=== PATIENT | female | born 1990 | race Caucasian/White ===

== ENCOUNTER 2019-05-17 00:02 | Emergency (ER) | payer BC ==
[2019-05-17] MEDS ORDERED: NA CHLORIDE 0.9% 1,000 ML ONE (00:49)
[2019-05-17] MEDS ORDERED: MORPHINE 4 MG/ML SYR ONE (00:50)
[2019-05-17] MEDS ORDERED: ONDANSETRON 4 MG/2 ML VIAL ONE (00:50)
[2019-05-17 01:01] LABS: Absolute Lymphocytes (CBC) 3.8 K/uL (0.7-4.9); Basophils % 0.7 % (0-1.3); Hematocrit 36.4 % (36.0-45.0); Lymphocytes % 36.2 % (15.3-44.8); MPV 7.9 fL (7.6-11.3); Monocytes % 6.6 % (3.3-12.3); RBC Red Blood Cell Count 4.62 M/uL (3.86-4.86)
[2019-05-17 01:17] LABS: ALT/SGPT 15 U/L (12-78); AST/SGOT 11 U/L (15-37); Albumin 3.6 g/dL (3.4-5.0); Alkaline Phosphatase 88 U/L (45-117); BUN Blood Urea Nitrogen 6 mg/dL (7-18); Bicarbonate 30 mmol/L (21-32); Bilirubin Direct < 0.1 mg/dL (0-0.2); Bilirubin Total 0.2 mg/dL (0.2-1.0); Glucose Level 102 mg/dL (74-106); Lipase 119 U/L (73-393); Protein, Total 8.5 g/dL (6.4-8.2); Sodium Level 141 mmol/L (136-145)
[2019-05-17 01:18] LABS: Urine Specific Gravity 1.025 (1.005-1.030)
[2019-05-17 01:19] LABS: Urine Blood 1+ (NEG); Urine Glucose NEGATIVE (NEG); Urine Protein 1+ (NEG); Urine Specific Gravity 1.025 (1.005-1.030)
[2019-05-17 01:33] LABS: Urine Bacteria 20-50 /HPF (<20); Urine Culture Reflex Order REFLEXED; Urine RBC <5 /HPF (NONE SEEN)
--- NOTE | 2019-05-17 02:56 | ER ---
Nurse's Notes [facility] Name: Cheryl Rose Age: 29 yrs Sex: Female : 1990 Arrival Date: 05/17/2019 Time: 00:03 Bed 5 Private MD: Diagnosis: Cholelithiasis;Urinary tract infection, site not specified Presentation: 05/17 00:12 Presenting complaint: Patient states: Pt reports she woke up this AM with low back ea pain, reports she took Ibuprofen and it helped, pt reports the pain came back this evening and has not been able to sleep. Reports pain is in lower back radiates to mid back and wraps around right side. Transition of care: patient was not received from another setting of care. Onset of symptoms was May 17, 2019. Risk Assessment: Do you want to hurt yourself or someone else? Patient reports no desire to harm self or others. Initial Sepsis Screen: Does the patient meet any 2 criteria? No. Patient's initial sepsis screen is negative. Does the patient have a suspected source of infection? No. Patient's initial sepsis screen is negative. Care prior to arrival: Medication(s) given: Motrin. 00:12 Method Of Arrival: Ambulatory ea 00:12 Acuity: CATRACHITA 3 ea Triage Assessment: 00:19 General: Appears uncomfortable, Behavior is calm, cooperative, appropriate for age. ea Pain: Complains of pain in low back area and left low back Pain radiates to mid back area. Neuro: Level of Consciousness is awake, alert, obeys commands, Oriented to person, place, time, situation. Cardiovascular: Patient's skin is warm and dry. Respiratory: Airway is patent Respiratory effort is even, unlabored, Respiratory pattern is regular, symmetrical. Derm: Skin is pink, warm \\T\\ dry. Musculoskeletal: Circulation, motion, and sensation intact. 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 - Social history:: Smoking status: Patient/guardian denies using tobacco. - Ebola Screening: : No symptoms or risks identified at this time. Screenin:17 Abuse screen: Denies threats or abuse. Nutritional screening: No deficits noted. ea Tuberculosis screening: No symptoms or risk factors identified. Fall Risk None identified. Assessment: 00:20 General: Appears uncomfortable, Behavior is calm, cooperative, appropriate for age. tl2 Pain: Complains of pain in left low back and low back area Pain radiates to right lower quadrant Pain currently is 10 out of 10 on a pain scale. Neuro: Level of Consciousness is awake, alert, obeys commands, Oriented to person, place, time, situation. Cardiovascular: Denies chest pain. Respiratory: Airway is patent Respiratory effort is even, unlabored, Respiratory pattern is regular, symmetrical. GI: Reports nausea, vomiting. : No signs and/or symptoms were reported regarding the genitourinary system. Derm: Skin is pink, warm \\T\\ dry. 03:16 Reassessment: Patient and/or family updated on plan of care and expected duration. Pain ea level reassessed. Patient is alert, oriented x 3, equal unlabored respirations, skin warm/dry/pink. Discharge instruction given to patient. verbalized the understanding of instruction. Pt left ED ambulatory, pt tolerating well. Patient denies pain at this time. Patient states feeling better. Patient states symptoms have improved. Vital Signs: 00:17 BP 141 / 109; Pulse 80; Resp 18; Temp 97.4; Pulse Ox 97% ; Weight 104.33 kg; Height 5 ea ft. 4 in. (162.56 cm); Pain 10/10; 01:06 BP 118 / 81; Pulse 77; Resp 18; Pulse Ox 95% on R/A; Pain 6/10; tl2 02:10 BP 92 / 64; Pulse 74; Resp 18; Pulse Ox 96% on R/A; tl2 02:51 BP 105 / 69; Pulse 65; Resp 18; Pulse Ox 95% on R/A; tl2 03:00 BP 101 / 64; Pulse 70; Resp 18; Temp 97.6; Pulse Ox 98% ; Pain 0/10; ea 00:17 Body Mass Index 39.48 (104.33 kg, 162.56 cm) ea ED Course: 00:03 Patient arrived in ED. ds1 00:07 Flako Owen NP is PHCP. pm1 00:07 Truong Darling MD is Attending Physician. pm1 00:17 Triage completed. ea 00:17 Arm band placed on right wrist. Patient placed in an exam room, on a stretcher, on ea pulse oximetry. 00:18 Patient has correct armband on for positive identification. Bed in low position. Call ea light in reach. Side rails up X2. 00:23 Michelle Kelley RN is Primary Nurse. tl2 00:30 Inserted saline lock: 22 gauge in left antecubital area, using aseptic technique. Blood tl2 collected. 01:48 CT Stone Protocol In Process Unspecified. EDMS 03:17 No provider procedures requiring assistance completed. IV discontinued, intact, ea bleeding controlled, No redness/swelling at site. Pressure dressing applied. Administered Medications: 00:46 Drug: Zofran 4 mg Route: IVP; Site: left antecubital; tl2 01:00 Follow up: Response: No adverse reaction; Nausea is decreased ea 00:46 Drug: morphine 4 mg Route: IVP; Site: left antecubital; tl2 01:00 Follow up: Response: No adverse reaction; Pain is decreased ea 00:46 Drug: NS 0.9% 1000 ml Route: IV; Rate: 1000 ml; Site: left antecubital; tl2 03:19 Follow up: Response: No adverse reaction; IV Status: Completed infusion; IV Intake: ea 1000ml 02:56 CANCELLED (allergy): Rocephin 1 grams IV at calculated rate once; Given slow IV push tl2 per pharmacy instructions Intake: 03:19 IV: 1000ml; Total: 1000ml. ea Outcome: 02:55 Discharge ordered by . pm1 03:17 Discharged to home ambulatory. ea 03:17 Condition: improved 03:17 Discharge instructions given to patient, Instructed on discharge instructions, follow up and referral plans. medication usage, Demonstrated understanding of instructions, follow-up care, medications, Prescriptions given X 1. 03:18 Patient left the ED. ea Signatures: Dispatcher [employer] [facility] Natalie Bae ds1 Flako Owen, ROMMEL TANK PUMPER PANELBOARD pm1 Michelle Kelley RN RN tl2 Denita Sifuentes RN RN ea Corrections: (The following items were deleted from the chart) 01:12 01:06 Pulse 77bpm; Resp 18bpm; Pulse Ox 95% RA; Pain 6/10; tl2 tl2 02:57 00:18 Allergies: No Known Allergies; ea tl2
--- NOTE | 2019-05-17 02:56 | EDPHYS ---
Physician Documentation [facility] Name: Cheryl Rose Age: 29 yrs Sex: Female : 1990 Arrival Date: 05/17/2019 Time: 00:03 Bed 5 Private MD: ED Physician Truong Darling HPI: 05/17 01:20 This 29 yrs old Female presents to ER via Ambulatory with complaints of Back pm1 Pain. 01:22 The patient complains of pain in the right mid back. Onset: The symptoms/episode pm1 began/occurred Yesterday AM. Modifying factors: The symptoms are alleviated by nothing. the symptoms are aggravated by nothing. Associated signs and symptoms: Pertinent positives: nausea, Pertinent negatives: dysuria, fever, hematuria, vomiting. Severity of pain: in the emergency department the pain is actually worse. The patient has not experienced similar symptoms in the past. The patient has not recently seen a physician. 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 - Social history:: Smoking status: Patient/guardian denies using tobacco. - Ebola Screening: : No symptoms or risks identified at this time. ROS: 01:22 Constitutional: Negative for fever, chills, and weight loss, Eyes: Negative for injury, pm1 pain, redness, and discharge, ENT: Negative for injury, pain, and discharge, Neck: Negative for injury, pain, and swelling, Cardiovascular: Negative for chest pain, palpitations, and edema, Respiratory: Negative for shortness of breath, cough, wheezing, and pleuritic chest pain, Abdomen/GI: Negative for abdominal pain, nausea, vomiting, diarrhea, and constipation. 01:22 : Negative for injury, bleeding, discharge, and swelling, MS/Extremity: Negative for injury and deformity, Skin: Negative for injury, rash, and discoloration, Neuro: Negative for headache, weakness, numbness, tingling, and seizure. 01:22 Back: Positive for flank pain, on the right, Negative for injury or acute deformity. Exam: 01:22 Constitutional: This is a well developed, well nourished patient who is awake, alert, pm1 and in no acute distress. Head/Face: Normocephalic, atraumatic. Eyes: Pupils equal round and reactive to light, extra-ocular motions intact. Lids and lashes normal. Conjunctiva and sclera are non-icteric and not injected. Cornea within normal limits. Periorbital areas with no swelling, redness, or edema. ENT: Nares patent. No nasal discharge, no septal abnormalities noted. Tympanic membranes are normal and external auditory canals are clear. Oropharynx with no redness, swelling, or masses, exudates, or evidence of obstruction, uvula midline. Mucous membranes moist. Neck: Trachea midline, no thyromegaly or masses palpated, and no cervical lymphadenopathy. Supple, full range of motion without nuchal rigidity, or vertebral point tenderness. No Meningismus. Chest/axilla: Normal chest wall appearance and motion. Nontender with no deformity. No lesions are appreciated. Cardiovascular: Regular rate and rhythm with a normal S1 and S2. No gallops, murmurs, or rubs. Normal PMI, no JVD. No pulse deficits. Respiratory: Lungs have equal breath sounds bilaterally, clear to auscultation and percussion. No rales, rhonchi or wheezes noted. No increased work of breathing, no retractions or nasal flaring. 01:22 Skin: Warm, dry with normal turgor. Normal color with no rashes, no lesions, and no evidence of cellulitis. MS/ Extremity: Pulses equal, no cyanosis. Neurovascular intact. Full, normal range of motion. 01:22 Abdomen/GI: Inspection: obese Bowel sounds: normal, Palpation: soft, mild abdominal tenderness, in the right upper quadrant, mass, is not appreciated, rebound tenderness, is not appreciated. 01:22 Back: pain, that is mild, of the right mid back, normal spinal alignment noted. 01:22 Neuro: Orientation: is normal, Motor: is normal, moves all fours. Vital Signs: 00:17 BP 141 / 109; Pulse 80; Resp 18; Temp 97.4; Pulse Ox 97% ; Weight 104.33 kg; Height 5 ea ft. 4 in. (162.56 cm); Pain 10/10; 01:06 BP 118 / 81; Pulse 77; Resp 18; Pulse Ox 95% on R/A; Pain 6/10; tl2 02:10 BP 92 / 64; Pulse 74; Resp 18; Pulse Ox 96% on R/A; tl2 02:51 BP 105 / 69; Pulse 65; Resp 18; Pulse Ox 95% on R/A; tl2 03:00 BP 101 / 64; Pulse 70; Resp 18; Temp 97.6; Pulse Ox 98% ; Pain 0/10; ea 00:17 Body Mass Index 39.48 (104.33 kg, 162.56 cm) ea MDM: 00:10 Patient medically screened. pm1 00:26 ED course: Patient with anaphylaxis with shellfish and has never had a CT scan. IV pm1 contrast will not be ordered for CT scan. 02:54 Data reviewed: vital signs. Data interpreted: Pulse oximetry: on room air is 95 %. pm1 Interpretation: normal. Counseling: I had a detailed discussion with the patient and/or guardian regarding: the historical points, exam findings, and any diagnostic results supporting the discharge/admit diagnosis, lab results, radiology results, the need for outpatient follow up, to return to the emergency department if symptoms worsen or persist or if there are any questions or concerns that arise at home. 02:54 Special discussion: I discussed with the patient the need to follow-up with the pm1 PCP/specialist for the noted incidental finding on X-ray/CT scanning. splenomegaly and hiatal hernia. 05/17 00:22 Order name: Basic Metabolic Panel; Complete Time: 01:20 pm05/17 00:22 Order name: CBC with Diff; Complete Time: 01:11 pm05/17 00:22 Order name: Creatinine for Radiology; Complete Time: :20 pm05/17 00:22 Order name: Hepatic Function; Complete Time: :20 pm05/17 00:22 Order name: Lipase; Complete Time: :20 pm05/17 01:01 Order name: Urine Microscopic Only; Complete Time: 01:41 pm05/17 00:22 Order name: CT Stone Protocol pm1 05/17 01:10 Order name: Urine Dipstick--Ancillary (enter results); Complete Time: 01:24 2 05/17 01:11 Order name: Urine --Ancillary (enter results); Complete Time: 01:24 mw2 05/17 01:35 Order name: Urine Culture EDMS 05/17 00:22 Order name: IV Saline Lock; Complete Time: 00:31 pm1 05/17 00:22 Order name: Labs collected and sent; Complete Time: 00:31 pm1 05/17 01:01 Order name: Urine Dipstick-Ancillary (obtain specimen); Complete Time: 01: pm1 05/17 01:01 Order name: Urine Test (obtain specimen); Complete Time: 01:06 pm1 Administered Medications: 00:46 Drug: Zofran 4 mg Route: IVP; Site: left antecubital; tl2 01:00 Follow up: Response: No adverse reaction; Nausea is decreased ea 00:46 Drug: morphine 4 mg Route: IVP; Site: left antecubital; tl2 01:00 Follow up: Response: No adverse reaction; Pain is decreased ea 00:46 Drug: NS 0.9% 1000 ml Route: IV; Rate: 1000 ml; Site: left antecubital; tl2 03:19 Follow up: Response: No adverse reaction; IV Status: Completed infusion; IV Intake: ea 1000ml 02:56 CANCELLED (allergy): Rocephin 1 grams IV at calculated rate once; Given slow IV push tl2 per pharmacy instructions Disposition: 05/17/19 02:55 Discharged to Home. Impression: Cholelithiasis, Urinary tract infection, site not specified. - Condition is Stable. - Discharge Instructions: Urinary Tract Infection, Adult, Cholelithiasis. - Prescriptions for Tylenol- Codeine #3 300-30 mg Oral Tablet - take 2 tablets by ORAL route every 6 hours As needed; 20 tablet. Zofran 4 mg Oral Tablet - take 1 tablet by ORAL route every 12 hours As needed; 20 tablet. Bactrim DS 800- 160 mg Oral Tablet - take 1 tablet by ORAL route every 12 hours for 10 days; 20 tablet. - Medication Reconciliation Form, Thank You Letter, Antibiotic Education, Prescription Opioid Use form. - Follow up: Emergency Department; When: As needed; Reason: Worsening of condition. Follow up: Private Physician; When: 2 - 3 days; Reason: Recheck today's complaints, Continuance of care, Re-evaluation by your physician. - Problem is new. - Symptoms have improved. Addendum: 05/19/2019 14:01 Co-signature as Attending Physician, Truong Darling MD Available for consultation at p s1 all times . Signatures: Dispatcher [employer] EDMS Flako Owen, ROMMEL CODING CLERKS SUPERVISOR pm1 Michelle Kelley, RN RN tl2 Denita Sifuentes RN Truong Hooper ea, MD MD ps1 Corrections: (The following items were deleted from the chart) 05/17 02:56 02:53 Rocephin 1 grams IV at calculated rate once; Given slow IV push per pharmacy tl2 instructions ordered. pm1 02:57 00:18 Allergies: No Known Allergies; ea tl2 03:18 02:55 05/17/2019 02:55 Discharged to Home. Impression: Cholelithiasis; Urinary tract ea infection, site not specified. Condition is Stable. Forms are Medication Reconciliation Form, Thank You Letter, Antibiotic Education, Prescription Opioid Use. Follow up: Emergency Department; When: As needed; Reason: Worsening of condition. Follow up: Private Physician; When: 2 - 3 days; Reason: Recheck today's complaints, Continuance of care, Re-evaluation by your physician. Problem is new. Symptoms have improved. pm1
--- NOTE | 2019-05-19 13:33 | RAD REPORT ---
EXAM DESCRIPTION: CT - Stone Protocol - 05/17/2019 2:08 am CLINICAL HISTORY: FLANK PAIN COMPARISON: None. TECHNIQUE: Axial unenhanced [address] imaging of the abdomen and pelvis performed. Reformatted coronal and sagittal images reviewed. A dose reduction technique was utilized with automated exposure control according to patient size. FINDINGS: LOWER THORAX: Clear lung bases. Heart is normal in size. No pericardial fluid. ABDOMEN: LIVER/GALLBLADDER: Normal liver. Dependent stones in the gallbladder without cholecystitis or biliar y dilatation. SPLEEN/PANCREAS: Spleen is enlarged to 14.3 cm. No varices. Normal pancreas. KIDNEYS/ADRENAL GLANDS: Normal adrenal glands. Normal right and left kidney. No hydronephrosis or re nal stone. No perinephric edema. RETROPERITONEAL VESSELS/NODES: Normal aorta and inferior vena cava caliber. No adenopathy. BOWEL: Small hiatal hernia. Normal stomach. Small bowel loops, right lower quadrant appendix, and co andreia are unremarkable. MESENTERY/PERITONEUM: No adenopathy, ascites or free air. PELVIS: BLADDER: Normal decompressed bladder. No bladder stone. GENITAL ORGANS: Normal uterus and ovaries. PERITONEUM: No adenopathy. No free fluid. BONES AND SOFT TISSUES: Mild lumbar Schmorl's nodes. Intact bony pelvis. Normal hips. Intact bony pe lvis. Normal soft tissues. IMPRESSION: 1. No evidence of urinary tract stone or hydronephrosis. 2. Gallstones without cholecystitis. 3. Splenomegaly without varices. 4. Small hiatal hernia.. Electronically signed by: Marva Chau DO 05/17/2019 1:59 AM CDT Due to temporary technical issues with the PACS/Fluency reporting system, reports are being signed by the in house radiologist as a courtesy to ensure prompt reporting. The interpreting radiologist is f ully responsible for the content of the report.
== END 2019-05-17 03:18 | disposition home or self-care (01) ==
LOC: ER 00:02
DX: K80.20 Calculus of gallbladder without cholecystitis without obstruction (principal); N39.0 Urinary tract infection, site not specified; Z88.8 Allergy status to other drugs, medicaments and biological substances; Z88.1 Allergy status to other antibiotic agents; Z91.013 Allergy to seafood
CPT/HCPCS: 36415; 74176; 76377; 80048; 80076; 81003; 81015; 81025; 83690; 85025; 87086; 87088; 96361; 96374; 96375; 99284; J2405; J7030

== ENCOUNTER 2022-02-03 05:38 | Emergency (ER) | payer BC, SELFPAY ==
[2022-02-03 06:19] LABS: Absolute Lymphocytes (CBC) 2.4 K/uL (0.7-4.9); Hematocrit 35.7 % (36.0-45.0); Lymphocytes % 25.9 % (15.3-44.8); MPV 7.2 fL (7.6-11.3); RBC Red Blood Cell Count 4.36 M/uL (3.86-4.86)
[2022-02-03] MEDS ORDERED: ONDANSETRON 4 MG/2 ML VIAL ONE (06:28)
[2022-02-03] MEDS ORDERED: MORPHINE 4 MG/ML SYR ONE (06:28)
[2022-02-03 06:42] LABS: ALT/SGPT 18 U/L (12-78); AST/SGOT 10 U/L (15-37); Albumin 3.2 g/dL (3.4-5.0); Alkaline Phosphatase 80 U/L (45-117); BUN Blood Urea Nitrogen 9 mg/dL (7-18); Bicarbonate 27 mmol/L (21-32); Bilirubin Total 0.3 mg/dL (0.2-1.0); Glucose Level 132 mg/dL (74-106); Lipase 106 U/L (73-393); Potassium 3.3 mmol/L (3.5-5.1); Sodium Level 138 mmol/L (136-145)
--- NOTE | 2022-02-03 07:04 | EDPHYS ---
Physician Documentation [facility] Name: Cheryl Rose Age: 32 yrs Sex: Female : 1990 Arrival Date: 02/03/2022 Time: 05:44 Bed 5 Private MD: ED Physician Dao Keys HPI: 02/03 06:37 This 32 yrs old Female presents to ER via Ambulatory with complaints of Low Back Pain, jr8 Abdominal Pain. 06:37 Onset: The symptoms/episode began/occurred acutely, today. Modifying factors: The jr8 patient symptoms are alleviated by nothing, the patient symptoms are aggravated by nothing. Severity of symptoms: At their worst the symptoms were moderate, in the emergency department the symptoms are unchanged. The patient has experienced similar episodes in the past, a few times. The patient has not recently seen a physician. This is a 32-year-old female with a history of cholelithiasis presented to the emergency room this morning with acute onset of mid back pain and mid abdominal pain radiating to the right side. Patient stated that she had had one other bad flareup about 2 years ago but since then has had only mild ones until today. Denies any nausea, vomiting, diarrhea, fever at this time.. 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 - Social history:: Smoking status: Patient denies any tobacco usage or history of. ROS: 06:37 Eyes: Negative for injury, pain, redness, and discharge, ENT: Negative for injury, jr8 pain, and discharge, Neck: Negative for injury, pain, and swelling, Cardiovascular: Negative for chest pain, palpitations, and edema, Respiratory: Negative for shortness of breath, cough, wheezing, and pleuritic chest pain, Back: Negative for injury and pain, MS/Extremity: Negative for injury and deformity, Skin: Negative for injury, rash, and discoloration, Neuro: Negative for headache, weakness, numbness, tingling, and seizure. 06:37 Abdomen/GI: Positive for abdominal pain, Negative for nausea, vomiting, and diarrhea, abdominal distension, hematemesis, black/tarry stool, rectal pain, rectal bleeding, bowel incontinence, flatulence. Exam: 06:37 Constitutional: This is a well developed, well nourished patient who is awake, alert, jr8 and in no acute distress. Cardiovascular: Regular rate and rhythm with a normal S1 and S2. No gallops, murmurs, or rubs. Normal PMI, no JVD. No pulse deficits. Respiratory: Lungs have equal breath sounds bilaterally, clear to auscultation and percussion. No rales, rhonchi or wheezes noted. No increased work of breathing, no retractions or nasal flaring. Back: No spinal tenderness. No costovertebral tenderness. Full range of motion. Skin: Warm, dry with normal turgor. Normal color with no rashes, no lesions, and no evidence of cellulitis. MS/ Extremity: Pulses equal, no cyanosis. Neurovascular intact. Full, normal range of motion. Neuro: Awake and alert, GCS 15, oriented to person, place, time, and situation. Cranial nerves II-XII grossly intact. Motor strength 5/5 in all extremities. Sensory grossly intact. 06:37 Abdomen/GI: Inspection: obese Bowel sounds: active, all quadrants, Palpation: soft, in all quadrants, mild abdominal tenderness, in the epigastric area and right upper quadrant, mass, is not appreciated, rebound tenderness, is not appreciated, voluntary guarding, is not appreciated, involuntary guarding, is not appreciated, no appreciated organomegaly, Indicators: McBurney's point is not tender, Teague's sign is positive, Liver: tenderness, is not appreciated. Vital Signs: 05:56 BP 107 / 77; Pulse 90; Resp 14; Temp 98.2; Pulse Ox 100% ; Weight 123.8 kg (M); Height al4 5 ft. 5 in. (165.10 cm) (R); 06:53 BP 119 / 83; Pulse 75; Resp 16; Pulse Ox 96% on R/A; kd3 05:56 Body Mass Index 45.42 (123.80 kg, 165.10 cm) al4 MDM: 06:08 Patient medically screened. jr8 06:57 Data reviewed: vital signs, nurses notes, lab test result(s), radiologic studies, jr8 ultrasound. Data interpreted: Pulse oximetry: on room air is 96 %. Interpretation: normal. Counseling: I had a detailed discussion with the patient and/or guardian regarding: the historical points, exam findings, and any diagnostic results supporting the discharge/admit diagnosis, lab results, radiology results, the need for outpatient follow up, a general surgeon, to return to the emergency department if symptoms worsen or persist or if there are any questions or concerns that arise at home. Response to treatment: the patient's symptoms have markedly improved after treatment. Special discussion: Based on the patient's Hx, exam, and Dx evaluation, there is no indication for emergent surgery or inpatient Tx. It is understood by the patient/guardian that if the Sx's persist or worsen they need to return immediately for re-evaluation. 07:02 ED course: Discussed with patient that she does have continued cholelithiasis but jr8 without findings for acute inflammation. No pericholecystic fluid, no CBD dilation, no wall thickening. Recommended clear liquids for the rest of today and then will put her on a gallbladder diet along with nausea and pain medicine. Needs to follow-up with general surgery for definitive care. If she were to start to run fever or have worsening of pain to come back for further evaluation. Patient good with the plan at this time.. 02/03 06:06 Order name: CBC with Diff; Complete Time: 06:33 st1 02/03 06:06 Order name: CMP; Complete Time: 06:52 st1 02/03 06:06 Order name: Lipase; Complete Time: 06:52 st1 02/03 06:18 Order name: US Abdomen Limited jr8 02/03 06:06 Order name: IV Saline Lock; Complete Time: 06:14 st1 02/03 06:06 Order name: Labs collected and sent; Complete Time: 06:14 st1 Administered Medications: 06:28 Drug: morphine 4 mg Route: IVP; Site: right antecubital; kd3 06:28 Drug: Zofran (Ondansetron) 4 mg Route: IVP; Site: right antecubital; kd3 Disposition: 07:41 Co-signature as Attending Physician, Dao Keys MD I agree with the assessment and kdr plan of care. Disposition Summary: 02/03/22 07:03 Discharge Ordered Location: Home jr8 Problem: new jr8 Symptoms: have improved jr8 Condition: Stable jr8 Diagnosis - Other cholelithiasis without obstruction jr8 - Right upper quadrant abdominal tenderness jr8 Followup: jr8 - With: Petros Reinoso MD - When: 2 - 3 days - Reason: Recheck today's complaints, Continuance of care, Re-evaluation by your physician Discharge Instructions: - Discharge Summary Sheet jr8 - Abdominal Pain, Adult jr8 - Cholelithiasis jr8 Forms: - Medication Reconciliation Form jr8 - Thank You Letter jr8 - Antibiotic Education jr8 - Prescription Opioid Use jr8 Prescriptions: - Zofran 4 mg Oral Tablet - take 1 tablet by ORAL route every 12 hours As needed; 20 tablet; Refills: 0, jr8 Product Selection Permitted - Tylenol-Codeine #3 300 mg-30 mg Oral - take 2 tablet by ORAL route every 8 hours As needed; 20 tablet; Refills: 0, jr8 Product Selection Permitted Signatures: Dispatcher [employer] Dao Finn MD MD kdr Roszak, Josh, PA PA jr8 Maria De Jesus Enamorado RN RN kd3 Kuldeep Shi [facility] Theodora Causey RN RN st1
--- NOTE | 2022-02-03 07:04 | ER ---
Nurse's Notes [facility] Name: Cheryl Rose Age: 32 yrs Sex: Female : 1990 Arrival Date: 02/03/2022 Time: 05:44 Bed 5 Private MD: Diagnosis: Other cholelithiasis without obstruction;Right upper quadrant abdominal tenderness Presentation: 02/03 05:56 Chief complaint: Patient states: pain in middle upper back described as a dull ache al4 since noon yesterday, pain with breathing, and a sore abdomen. "last time I felt like this, I had a gall bladder attack". Coronavirus screen: Vaccine status: Patient reports being unvaccinated. Ebola Screen: No symptoms or risks identified at this time. Initial Sepsis Screen: Does the patient meet any 2 criteria? No. Patient's initial sepsis screen is negative. Does the patient have a suspected source of infection? No. Patient's initial sepsis screen is negative. Risk Assessment: Do you want to hurt yourself or someone else? Patient reports no desire to harm self or others. Onset of symptoms was February 02, 2022. 05:56 Method Of Arrival: Ambulatory al4 05:56 Acuity: CATRACHITA 3 al4 Triage Assessment: 05:58 General: Appears in no apparent distress. uncomfortable, Behavior is calm, cooperative, al4 patient states she has been having acid reflux. Pain: Complains of pain in posterior chest. Neuro: Level of Consciousness is awake, alert, obeys commands, Oriented to person, place, time, situation. Cardiovascular: Capillary refill < 3 seconds Patient's skin is warm and dry. Respiratory: Airway is patent Respiratory effort is unlabored, Respiratory pattern is regular. GI: Abd is soft and non tender X 4 quads. Reports nausea, Patient currently denies diarrhea, vomiting. Musculoskeletal: Circulation, motion, and sensation intact. 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 - Social history:: Smoking status: Patient denies any tobacco usage or history of. Screenin:07 Abuse screen: Denies threats or abuse. Nutritional screening: No deficits noted. st1 Tuberculosis screening: No symptoms or risk factors identified. Fall Risk None identified. No fall in past 12 months (0 pts). No secondary diagnosis (0 pts). IV access (20 points). Ambulatory Aid- None/Bed Rest/Nurse Assist (0 pts). Gait- Normal/Bed Rest/Wheelchair (0 pts) Mental Status- Oriented to own ability (0 pts). Total Lund Fall Scale indicates No Risk (0-24 pts). Assessment: 06:07 Reassessment: Patient appears in no apparent distress at this time. Patient is alert, st1 oriented x 3, equal unlabored respirations, skin warm/dry/pink. Neuro: No deficits noted. Cardiovascular: No deficits noted. Respiratory: No deficits noted. GI: Reports lower abdominal pain, intolerance of fluids, intolerance of food, nausea. Musculoskeletal: No deficits noted. 07:27 Reassessment: Patient appears in no apparent distress at this time. Patient is alert, vg1 oriented x 3, equal unlabored respirations, skin warm/dry/pink. Patient states feeling better. Vital Signs: 05:56 BP 107 / 77; Pulse 90; Resp 14; Temp 98.2; Pulse Ox 100% ; Weight 123.8 kg (M); Height al4 5 ft. 5 in. (165.10 cm) (R); 06:53 BP 119 / 83; Pulse 75; Resp 16; Pulse Ox 96% on R/A; kd3 05:56 Body Mass Index 45.42 (123.80 kg, 165.10 cm) al4 ED Course: 05:44 Patient arrived in ED. wm 05:47 Maria De Jesus Enamorado, RN is Primary Nurse. kd3 05:58 Triage completed. al4 06:00 Arm band placed on. al4 06:06 Inserted saline lock: 20 gauge in right antecubital area, using aseptic technique. st1 Blood collected. 06:08 Huseyin Massey PA is PHCP. jr8 06:08 Dao Keys MD is Attending Physician. jr8 06:08 Patient has correct armband on for positive identification. Bed in low position. Call st1 light in reach. Side rails up X2. Pulse ox on. NIBP on. Door closed. Warm blanket given. Head of bed elevated. 06:14 Lipase Sent. st1 06:14 CMP Sent. st1 06:14 CBC with Diff Sent. st1 06:36 US Abdomen Limited In Process Unspecified. EDMS 07:02 Petros Reinoso MD is Referral Physician. jr8 07:26 No provider procedures requiring assistance completed. IV discontinued, intact, vg1 bleeding controlled, No redness/swelling at site. Pressure dressing applied. Administered Medications: 06:28 Drug: morphine 4 mg Route: IVP; Site: right antecubital; kd3 06:28 Drug: Zofran (Ondansetron) 4 mg Route: IVP; Site: right antecubital; kd3 Outcome: 07:03 Discharge ordered by . jr8 07:26 Discharged to home ambulatory. vg1 07:26 Condition: good 07:26 Discharge instructions given to patient, Instructed on discharge instructions, follow up and referral plans. medication usage, Demonstrated understanding of instructions, follow-up care, medications, Prescriptions given X 2. 07:27 Patient left the ED. vg1 Signatures: Dispatcher [employer] EDIA Huseyin Massey PA PA jr8 Rajni Dai, RN RN vg1 Linda Gonzalez Kyli, RN RN kd3 Kuldepe Shi4 Theodora Causey, RN RN st1 Corrections: (The following items were deleted from the chart) 06:06 06:06 Inserted saline lock: 20 gauge in right antecubital area, using aseptic st1 technique. st1
--- NOTE | 2022-02-03 07:33 | RAD REPORT ---
EXAM DESCRIPTION: US - Abdomen Exam Limited - 02/03/2022 6:37 am CLINICAL HISTORY: Gall stone history/ rulle out cholecystitis;Abd pain COMPARISON: Stone Protocol dated 05/17/2019 FINDINGS: Multiple mobile subcentimeter gallstones are present. There is no wall thickening or peric holecystic fluid. No measurable quantity of sludge. No common duct stone or biliary tree dilatation identified. IMPRESSION: Multi stone cholelithiasis without other findings of acute cholecystitis. No biliary tree abnormality.
[2022-02-03 09:19] VITALS: TEMP 98.2
[2022-02-03 09:21] VITALS: BP 119/83; O2SAT 96
== END 2022-02-03 07:27 | disposition home or self-care (01) ==
LOC: ER 05:38
DX: K80.80 Other cholelithiasis without obstruction (principal); Z88.4 Allergy status to anesthetic agent; Z88.8 Allergy status to other drugs, medicaments and biological substances; Z91.013 Allergy to seafood
CPT/HCPCS: 36415; 76705; 80053; 83690; 85025; 96374; 96375; 99284; J2405